=== PATIENT | male | born 1995 | race Caucasian/White ===

== ENCOUNTER 2018-10-08 16:02 | Emergency (ER) | payer OTHER ==
[2018-10-08] MEDS ORDERED: NS 0.9% 1000 ML** 1,000 ML IV ONE ×4 (16:11→20:18)
--- OUTSIDE RECORDS SUMMARY | 2018-10-08 16:13 | XMS REPORT | Continuity of Care Document ---
:1995 External Reference #:[id number] Author Name Marlee Burrell Care Team Providers Name Role Phone [facility] Primary Care Physician Unavailable Payers Date Identification Numbers Payment Provider Subscriber Policy Number: [id number] [facility] Martin Harden PayID: [id number] [address] [place] [address] Advance Directives Description No Information Available Problems Description No Information Family History Date Family Member(s) Observation Comments General Diabetes Social History Type Date Description Comments Sex Unknown Lives With Alone Occupation Unemployed ETOH Use Never used alcohol Tobacco Use Start: Unknown Patient has never smoked Smoking Status Reviewed: 09/25/18 Patient has never smoked Exercise Type/Frequency Exercises regularly Allergies, Adverse Reactions, Alerts Description No Known Drug Allergies Medications Active Medications SIG Qnty Indications Ordering Provider Date Vitamin D3 one by mouth once Unknown 11508Ozhx weekly Tablets History Medications No Active Unknown 09/25/2018 - Medications 09/25/2018 Medrol use as directed 1units G54.0 Allison Zendejas 08/28/2018 - 4mg TBPK M.D. 09/24/2018 No Active Unknown 07/28/2018 - Medications 08/28/2018 Medications Administered in Office Medication SIG Qnty Indications Ordering Provider Date Depomedrol 40MG TRACY Agarwal 07/28/2018 Injection Immunizations Description No Information Available Vital Signs Date Vital Result Comment 09/25/2018 12:50pm Height 72 inches 6'0" Weight 158.00 lb w/ shoes Heart Rate 80 /min BP Systolic Sitting 96 mmHg BP Diastolic Sitting 71 mmHg BMI (Body Mass Index) 21.4 kg/m2 08/28/2018 2:40pm Height 72 inches 6'0" Heart Rate 64 /min BP Systolic 108 mmHg BP Diastolic 72 mmHg Respiratory Rate 18 /min Body Temperature 98.2 F Pain Level 0 07/28/2018 8:22am Height 72 inches 6'0" Weight 159.00 lb Heart Rate 64 /min BP Systolic 112 mmHg BP Diastolic 70 mmHg Respiratory Rate 16 /min Pain Level 9 BMI (Body Mass Index) 21.6 kg/m2 Results Description No Information Available Procedures Date Code Description Status 07/28/2018 11494 Injection, Carpal Tunnel Completed Encounters Type Date Location Provider Dx Diagnosis Office Visit 08/28/2018 [facility] Allison Zendejas, G54.0 Brachial plexus 2:30p [facility] Office Visit 07/28/[address], M25.531 Pain in right 8:45a [facility] MOLINA wrist G56.01 Carpal tunnel syndrome, right upper limb Plan of Treatment Future Appointment(s):10/08/2018 11:30 am - [facility] - Keshia Gan RPA-CM25.50 Pain in unspecified jointFollow up:After lab results with Dr. MatosE29.1 Testicular hypofunctionNew Labs:Sex Hormone Binding Globulin, Ordered: 09/25/18Testosterone Free & Total, Ordered: 09/25/18E22.1 JdcrbchokrgswijotzT56.0 Anesthesia of skinR53.1 Weakness
--- OUTSIDE RECORDS SUMMARY | 2018-10-08 16:13 | XMS REPORT | Continuity of Care Document ---
:1995 External Reference #:[id number] Author Name Marlee Burrell Care Team Providers Name Role Phone [facility] Primary Care Physician Unavailable Payers Date Identification Numbers Payment Provider Subscriber Policy Number: [id number] [facility] Martin Harden PayID: [id number] [address] [place] [address] Advance Directives Description No Information Available Problems [...] Vitamin D3 one by mouth once Unknown 21105Hxjt weekly Tablets History Medications No Active Unknown [...] Available Procedures Date Code Description Status 07/28/2018 06152 Injection, Carpal Tunnel Completed Encounters Type Date Location Provider Dx Diagnosis Office Visit 08/28/2018 [facility] Allison Zendejas, G54.0 Brachial plexus 2:30p [facility] Office Visit 07/28/[address], M25.531 Pain in right 8:45a [facility] MOLINA wrist G56.01 Carpal tunnel syndrome, right upper limb Plan of Treatment Future Appointment(s):10/08/2018 11:30 am - Allison Zendejas M.D. at [facility]
--- OUTSIDE RECORDS SUMMARY | 2018-10-08 16:13 | XMS REPORT | Continuity of Care Document ---
:1995 External Reference #:[id number] Author Name Gabriela Wang NP Address [address] [place] [address] Care Team Providers Name Role Phone Selene Vargas M.D. 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 Primary Care Physician Unavailable Payers Date Identification Numbers Payment Provider Subscriber Effective: 2017 Policy Number: [id number] Chasity Harden Group Number: [id number] [address] PayID: [id number] [place] [address] Advance Directives Description No Information Available Problems Description No Information Family History Date Family Member(s) Observation Comments Paternal Grandmother Diabetes Mellitus, II Social History Type Date Description Comments Sex Unknown Education Currently working on Master's Degree Lives With Roommate Diet Healthy, Well Balanced Sleep Reports normal sleep activity Tobacco Use Start: Unknown Never Smoked Cigarettes ETOH Use Denies alcohol use Tobacco Use Start: Unknown Patient has never smoked Smoking Status Reviewed: 09/15/18 Patient has never smoked Exercise Type/Frequency Exercises regularly Allergies, Adverse Reactions, Alerts Description No Known Drug Allergies Medications Active Medications SIG Qnty Indications Ordering Provider Date Ergocalciferol take one tablet 8caps Gabriela Ortiz 09/15/2018 30129Dglm by mouth once a AMANDA Wang Capsules week for 8 weeks History Medications No Active Medications Unknown 04/10/2018 - 09/15/2018 Immunizations Description No Information Available Vital Signs Date Vital Result Comment 09/15/2018 6:46pm BP Systolic 92 mmHg BP Diastolic 60 mmHg Heart Rate 64 /min Body Temperature 97.8 F Respiratory Rate 17 /min Height 71.75 inches 5'11.75" Weight 156.00 lb stated BMI (Body Mass Index) 21.3 kg/m2 04/10/2018 2:54pm BP Systolic 82 mmHg BP Diastolic 54 mmHg Heart Rate 66 /min Body Temperature 97.3 F Height 71.75 inches 5'11.75" Weight 161.00 lb BMI (Body Mass Index) 22.0 kg/m2 Results Test Date Facility Test Result H/L Range Note Laboratory test 09/09/2018 [facility] Vitamin D25 10 Low 30-100 finding CBC Electronic 09/09/2018 [facility] WBC 3.7 x10^3/UL Low 4.0-10.0 1 Fma RBC 4.56 x10^6/UL 3.93-6.00 HGB 13.7 g/dL 12.0-17.0 HCT 42 % 35-50 MCV 91.0 fL 80.0-95.0 MCH 30.0 pg 25.6-32.2 MCHC 33.0 g/dL 32.2-36.0 RDW-CV 13.1 % 11.6-14.4 PLT 126 x10^3/UL Low 163-400 2 MPV 9.1 fL Low 9.4-12.4 [place]# 1.80 x10^3/UL 1.56-6.13 Lymph# 1.58 x10^3/UL 1.18-3.74 [place]# 0.22 x10^3/UL Low 0.24-0.82 Eos # 0.1 x10^3/UL 0.0-0.5 Baso # 0.02 x10^3/UL 0.01-0.08 [place]% 48.8 % 34.0-70.0 Lymph % 42.8 % 20.0-52.0 [place]% 6.0 % 5.0-12.0 Eos% 1.9 % 0.7-7.0 Baso% 0.5 % 0.1-1.2 Comprehensive Metabolic Prof 09/09/2018 [facility] Sodium 137 mEq/L 134-149 Potassium 3.7 mEq/L 3.6-5.5 Chloride 99 mEq/L 94-112 Carbon Dioxide 28 mEq/L 21-32 Glucose 94 mg/dL 70-105 BUN 13 mg/dL 6-26 Creatinine 0.9 mg/dL 0.6-1.4 BUN/Creat Ratio 14.4 CALC 8.0-36.0 Calcium 9.4 mg/dL 8.6-10.2 Total Protein 6.8 g/dL 6.4-8.3 Albumin 4.7 g/dL 3.8-5.5 Globulin 2.1 g/dL 2.0-4.8 A/G Ratio 2.2 CALC 0.6-2.3 Alk. Phosphatase 32 U/L 22-95 Alt (SGPT) 25 U/L 7-35 Ast (Sgot) 27 U/L 5-34 Total Bilirubin 0.8 mg/dL 0.2-1.3 GFR Non- >60 ml/min/1.73m^ >=60 GFR >60 ml/min/1.73m^ >=60 Lipid Profile 09/09/2018 [facility] Cholesterol 194 mg/dL 120-200 Triglycerides 59 mg/dL 30-200 HDL Cholesterol 89 mg/dL High 30-70 3 LDL (Calculated) 93 CALC 0-129 VLDL Cholesterol 12 mg/dL 0-50 HDL Risk Factor 2.2 CALC 0.0-4.4 1 RESULTS VERIFIED BY REPEAT ANALYSIS 2 RESULTS VERIFIED BY REPEAT ANALYSIS 3 RESULTS VERIFIED BY REPEAT ANALYSIS Procedures Description No Information Available Encounters Type Date Location Provider Dx Diagnosis Office Visit 04/10/2018 [facility] Office DIXIE Fang Z00.00 Encntr for general 2:30p adult medical exam w/o abnormal findings Z00.01 Encounter for general adult medical exam w abnormal findings Plan of Treatment 09/15/2018 - Gabriela Wang, NPE55.9 Vitamin D deficiency, unspecifiedNew Labs:Vitamin D, 25Hydroxy(Fma/LC, Ordered: 09/15/18Comments:will supplement, repeat labs in 8 weeks we need records from all of the testing you have hadWhen care is segmented and you have labs/testing/treatments in a variety of different locations there is no continuity of care. I think since you are leaving [place] it may benefit you to find a solid primary care clinic and have all of your records from all of your providers sent to them to organize and come up with a game plan for your symptomsAllNew Medication:Ergocalciferol 65961 Unit - take one tablet by mouth once a week for 8 weeksComments: Medication Management Patient Understands medications he 's taking? Yes No Are there Barriers to Adherence? Yes No Has the patient been asked about herbal supplements and therapies, andOTC meds? Yes No Care Plan1. Patient has been queried about patient's goals/preferences and functional/lifestyle goals at relevant visits. If relevant, describe: na2. Treatment goals as explained to the patient: above3. Are there barriers to meeting treatment goals? Yes No If Yes, please describe:4. Self- Management goals as described to the patient: Yes NoAs always, we strongly encourage a healthy diet and making physical activity a part of your every day life. If you have questions about how or where to start, please contact the office.Follow up:Annual Due: 09/2019
--- NOTE | 2018-10-08 17:14 | ED ---
Substance Abuse/Use - HPI Summary HPI Summary: Patient is a 22-year-old male presenting to the ED with alcohol intoxication from [place]/. Patient is obviously intoxicated on arrival, with vomitus nearby. Unknown if other drugs were consumed. Patient appears diaphoretic, pale and hypotensive on arrival. He is given fluids on arrival and is reacting to painful stimuli with sternal rub. He has not reacting to verbal stimuli. - History Of Current Complaint Chief Complaint: EDSubstanceAbuse Stated Complaint: ETOH Time Seen by Provider: 10/08/18 16:06 Hx Obtained From: Patient Hx From Patient Unobtainable Due To: Altered Mental Status Ingestion History: Type/Name Of Drug - Alcohol, Amount Ingested - Unknown, Approximate Time Of Ingestion - Prior to arrival Overdose Characteristics: Oral Timing Of Abuse: Binge Use Severity Initially: Severe Severity Currently: Severe Character: Stuporous Aggravating Factor(s): Nothing Alleviating Factor(s): Nothing Associated Signs And Symptoms: Nausea, Vomiting, Intentional Ingestion Related Hx: Drug/Alcohol Last Used @ - Just prior to arrival, Possible Multi Drug Ingestion - Unknown - Risk Factor(s) Completed Suicide Risk Factors: Male - Allergies/Home Medications Allergies/Adverse Reactions: Allergies Allergy/AdvReac Type Severity Reaction Status Date / Time No Known Allergies Allergy Verified 10/08/18 20:23 Home Medications: Home Medications Ergocalciferol CAP* [Drisdol CAP*] 50,000 units PO WEEKLY 10/08/18 [History Confirmed 10/08/18] PMH/Surg Hx/FS Hx/Imm Hx Previously Healthy: Yes - Immunization History Hx Pertussis Vaccination: No Immunizations Up to Date: Yes Infectious Disease History: Unable to Obtain/Confirm Infectious Disease History: Denies: Traveled Outside the [place] in Last 30 Days - Social History Occupation: Unemployed, Student Lives: Dormitory/Roommates Alcohol Use: Occasionally Alcohol Amount: ETOH today Hx Substance Use: No Substance Use Type: Reports: None Substance Use Comment - Amount & Last Used: unknown Hx Tobacco Use: No Smoking Status (MU): Unknown if Ever Smoked Review of Systems Negative: Fever, Chills, Fatigue, Skin Diaphoresis Negative: Shortness Of Breath, Cough Positive: Vomiting, Nausea Negative: Edema Negative: Bruising Positive: Slurred Speech All Other Systems Reviewed And Are Negative: Yes Physical Exam Triage Information Reviewed: Yes Vital Signs On Initial Exam: Initial Vitals Temp Pulse Resp BP Pulse Ox 97.3 F 62 14 88/51 91 10/08/18 16:08 10/08/18 16:08 10/08/18 16:08 10/08/18 16:08 10/08/18 16:08 Completion Of Physical Exam Limited Due To: Altered Mental Status Appearance: Positive: Ill-Appearing Skin: Positive: Warm, Diaphoretic, Pale Head/Face: Positive: Normal Head/Face Inspection Eyes: Positive: EOMI, Conjunctiva Clear Neck: Positive: Supple, No Lymphadenopathy Respiratory/Lung Sounds: Positive: Clear to Auscultation, Breath Sounds Present Cardiovascular: Positive: RRR, Pulses are Symmetrical in both Upper and Lower Extremities. Negative: Leg Edema Left, Leg Edema Right Musculoskeletal: Positive: Strength/ROM Intact Neurological: Positive: Slurred Speech Psychiatric: Positive: Patient Uncooperative for Exam AVPU Assessment: Pain (Reponds To) - Painful stimuli - [place] Coma Scale Best Eye Response: 2 - To Pain Best Motor Response: 3 - Flexion (Decorticate) Best Verbal Response: 2 - Incomprehensible Words Coma Scale Total: 7 Diagnostics - Vital Signs Vital Signs Temp Pulse Resp BP Pulse Ox 10/08/18 16:55 48 16 81/50 99 10/08/18 16:25 57 17 94/62 99 10/08/18 16:08 97.3 F 62 14 88/51 91 - Laboratory Lab Results: Lab Results 10/08/18 Range/Units 16:22 Serum Alcohol 278 H (<10) mg/dL Result Diagrams: 10/08/18 19:45 10/08/18 19:45 Lab Statement: Any lab studies that have been ordered have been reviewed, and results considered in the medical decision making process. Course/Dx - Course Course Of Treatment: On arrival into the ED, patient is reacting only to painful stimuli and not verbal stimuli. He is actively vomiting. He remains hypotensive and bradycardic and is given 2 L fluids with some improvement. On reexamination, he continues to vomit. Alcohol level obtained which is 278. Unable to obtain a urine drug screen due to patient's disorientation. Reexamination shows patient is bradycardic at 40 and hypotensive at 85/45. He is given another liter of fluids and discussed case with Dr. Velasco, hospitalist. 3 L completed he remains bradycardic at 41-43 as well as hypotensive. At this time patient is able to open his eyes to painful stimuli, but remains unable to answer questions appropriately and is not alert and oriented. Denies medical complications, no previous history, takes no medications and did not have any drug use on this date. Labs obtained and benign. After several hours in ED, patient awakens and is A and O x 3. He remains bradycardic at 45-50, however BP improves. 4L given in ED total. He is ambulating well, drinking well. Safe ride back to campus at this time. - Diagnoses Provider Diagnoses: Alcohol intoxication Discharge - Sign-Out/Discharge Documenting (check all that apply): Patient Departure Patient Received Moderate/Deep Sedation with Procedure: No - Discharge Plan Condition: Stable Disposition: HOME Patient Education Materials: Alcohol Intoxication (ED) Referrals: [facility] PHYSICIAN REFERRAL [Outside] (2-3 days) Additional Instructions: PLEASE RETURN TO THE ED IMMEDIATELY FOR WORSENING OR CONCERNING SYMPTOMS. - Billing Disposition and Condition Condition: STABLE Disposition: Home
[2018-10-08] MEDS ORDERED: Ondansetron INJ* 2 MG/ML VIAL IV ONE (17:46)
[2018-10-08 20:15] LABS: Albumin 3.8 g/dL (3.2-5.2); Calcium 7.7 mg/dL (8.6-10.3); Potassium 3.7 mmol/L (3.5-5.0); Total Bilirubin 0.5 mg/dL (0.2-1.0)
[2018-10-08 20:21] LABS: ABS Lymphocytes 0.9 10^3/ul (1.0-4.8); ABS Monocytes 0.1 10^3/ul (0-0.8); ABS Neutrophils 3.3 10^3/ul (1.5-7.7); Albumin/Globulin Ratio 2.1 (1-3); BUN/Creatinine Ratio 20.8 (8-20); EGFR African American 163.7 (>60); EGFR Non-African American 135.3 (>60); Globulin 1.8 g/dL (2-4); Hematocrit 38 % (42-52); Hemoglobin 12.4 g/dL (14.0-18.0); Mean Corpuscular HGB Conc 33 g/dL (31-36); Mean Corpuscular Hemoglobin 30 pg (27-31); Mean Corpuscular Volume 92 fL (80-94); Mean Platelet Volume 7.8 fL (7.4-10.4); Platelet Count 111 10^3/uL (150-450); Red Blood Count 4.09 10^6 /uL (4.18-5.48); Red Cell Distribution Width 14 % (10.5-15); Total Protein 5.6 g/dL (6.4-8.9); White Blood Count 4.4 10^3/uL (3.5-10.8)
[2018-10-08 20:22] LABS: ABS Nucleated RBC 0.2 10^3/ul; Eosinophil % 0.1 %; Lymphocyte % 21.1 %
--- NOTE | 2018-10-08 22:07 | ED ---
Progress - Progress Note Progress Note: This patient was signed out from CRUZ Luis, at 19:00 today. The patient was bradycardic on traffic monitor specialist while sleeping. When he woke up his heart rate was above 60bpm. He has no complaints and admits to drinking today. His EKG showed NSR at 66 bpm, first degree AV block. Pt is alert and oriented and has a steady gait. He will be discharged and is agreeable with this plan. Course/Dx - Course Course Of Treatment: This patient was signed out from CRUZ Luis, at 19: 00 today. The patient was bradycardic on traffic monitor specialist while sleeping. When he woke up his heart rate was above 60bpm. He has no complaints and admits to drinking today. His EKG showed NSR at 66 bpm, first degree AV block. Pt is alert and oriented and has a steady gait. He will be discharged and is agreeable with this plan. - Diagnoses Provider Diagnoses: Alcohol intoxication Discharge - Sign-Out/Discharge Documenting (check all that apply): Patient Departure - DC Patient Received Moderate/Deep Sedation with Procedure: No - Discharge Plan Condition: Stable Disposition: HOME Patient Education Materials: Alcohol Intoxication (ED) Referrals: [facility] [place] PHYSICIAN REFERRAL [Outside] (2-3 days) Additional Instructions: PLEASE RETURN TO THE ED IMMEDIATELY FOR WORSENING OR CONCERNING SYMPTOMS. - Billing Disposition and Condition Condition: STABLE Disposition: Home - Attestation Statements Document Initiated by Mino: Yes Documenting Scribe: Migel Kern Provider For Whom Mino is Documenting (Include Credential): Tamir Guillen MD Scribe Attestation: Migel Tapia, scribed for Tamir Guillen MD on 10/09/18 at 0557. Scribe Documentation Reviewed: Yes Provider Attestation: The documentation as recorded by the Migel bonner accurately reflects the service I personally performed and the decisions made by me, Tamir Guillen MD Status of Scribe Document: Viewed
[2018-10-08 22:35] VITALS: BP 101/75
== END 2018-10-08 22:35 | disposition home or self-care (01) ==
LOC: ED 16:02
DX: F10.129 Alcohol abuse with intoxication, unspecified (principal); R11.2 Nausea with vomiting, unspecified; R47.81 Slurred speech
CPT/HCPCS: 36415; 80053; 80320; 85025; 93005; 96361; 96374; 99284; G0480; J2405